=== PATIENT | male | born 1955 | race Caucasian/White ===

== ENCOUNTER 2021-09-07 08:06 | Emergency (ER) | payer MEDICARE, BC ==
[2021-09-07 08:19] VITALS: BP 145/80; PULSE 78
[2021-09-07] MEDS ORDERED: Aspirin 81 MG Tab.Chew PO ONE (08:20)
[2021-09-07] MEDS ORDERED: Sodium Chloride 0.9% 10 ML Syringe FLUSH PRN (08:20)
--- NOTE | 2021-09-07 08:51 | EDM.PDOC ---
ED HPI GENERAL MEDICAL PROBLEM - General Chief Complaint: Cardiovascular Problem Stated Complaint: RAPID HEART BEAT STIFF NECK Time Seen by Provider: 09/07/21 08:29 Source of Information: Reports: Patient History Limitations: Reports: No Limitations - History of Present Illness INITIAL COMMENTS - FREE TEXT/NARRATIVE: Patient is a 66-year-old male who is complaining of having palpitations which he noticed when he got up to go the bathroom around midnight last night. Patient states his blood pressure machine gave him readings approximately 140 bpm and his blood pressure was also elevated for his normal. Patient had no chest pain or pressure no shortness of breath diaphoresis. He denies any fever chills or Covid symptoms. He denies any bloody or tarry stools. He denies any swelling to his calves or ankles. Patient denies having similar symptoms in the past. He is not a cigarette smoker. He has been vaccinated for Covid. Patient does have a positive family history of coronary artery disease and is being treated for both hypertension hypercholesterolemia. Patient symptoms lasted approximately 1 hour and he has not had any symptoms since. Patient did work o ut on his treadmill machine this morning which he does twice a day and had no symptoms on the treadmill. Onset: Today Duration: Hour(s): (0ne) Severity: Mild Improves with: Reports: None Worsens with: Reports: None Associated Symptoms: Denies: Chest Pain, Nausea/Vomiting, Shortness of Breath, Weakness - Related Data Allergies Allergy/AdvReac Type Severity Reaction Status Date / Time No Known Allergies Allergy Verified 09/07/21 08:19 Home Meds: Home Meds Telmisartan [Micardis] 20 mg PO DAILY 04/28/14 [History] Meloxicam 15 mg PO 09/07/21 [History] atorvaSTATin [Lipitor] 09/07/21 [History] Past Medical History Cardiovascular History: Reports: High Cholesterol, Hypertension Musculoskeletal History: Reports: Arthritis - Infectious Disease History Infectious Disease History: Reports: Novel Coronavirus - Past Surgical History GI Surgical History: Reports: Appendectomy, Cholecystectomy Social & Family History - Tobacco Use Tobacco Use Status *Q: Never Tobacco User ED ROS GENERAL - Review of Systems Review Of Systems: Comprehensive ROS is negative, except as noted in HPI. Constitutional: Reports: No Symptoms Respiratory: Reports: No Symptoms. Denies: Shortness of Breath Cardiovascular: Reports: Palpitations. Denies: Chest Pain Endocrine: Denies: Fatigue GI/Abdominal: Reports: No Symptoms Musculoskeletal: Reports: No Symptoms Skin: Reports: No Symptoms Neurological: Reports: No Symptoms Psychiatric: Reports: No Symptoms ED EXAM, GENERAL - Physical Exam Exam: See Below Exam Limited By: No Limitations General Appearance: Alert, No Apparent Distress Neck: Normal Inspection, Supple Respiratory/Chest: No Respiratory Distress, Lungs Clear, Normal Breath Sounds Cardiovascular: Regular Rate, Rhythm, No Edema GI/Abdominal: Normal Bowel Sounds Extremities: Normal Inspection Neurological: Alert, Oriented Psychiatric: Normal Affect Skin Exam: Warm, Dry #1 Interpretation EKG Date: 09/07/21 Rhythm: NSR [place]: LAD-Left [place] Deviation P-Wave: Present QRS: Normal ST-T: Normal Comparison: NA - No Prior EKG Course - Vital Signs Text/Narrative:: Patient is having a 48-hour Holter monitor placed. Patient's lab work including troponin are unremarkable. Patient will be discharged at this point with instructions not to use alcohol or caffeine or any other stimulants. He is to return to emergency department if symptoms are worse and to follow-up with a PCP vice president of business development in a week's time for recheck. Last Recorded V/S: Last Vital Signs Temp 97.5 F 09/07/21 08:17 Pulse 78 09/07/21 08:17 Resp 18 09/07/21 08:17 BP 145/80 H 09/07/21 08:17 Pulse Ox 100 09/07/21 08:17 - Orders/Labs/Meds Orders: Active Orders 24 hr Category Date Time Status Cardiac Monitoring [RC] . DIRECTED Care 09/07/21 08:21 Active Communication Order [RC] ASDIRECTED Care 09/07/21 08:21 Active Holter Monitor 48 Hours [RC] .PRN Care 09/07/21 08:45 Active Peripheral IV Care [RC] . DIRECTED Care 09/07/21 08:21 Active Sodium Chloride 0.9% [Saline Flush] Med 09/07/21 08:20 Active 10 ml FLUSH ASDIRECTED PRN Peripheral IV Insertion Adult [OM.PC] Stat Oth 09/07/21 08:21 Ordered Medication Orders Sodium Chloride (Sodium Chloride 0.9% 10 Ml Syringe) 10 ml FLUSH ASDIRECTED PRN PRN Reason: Keep Vein Open Last Admin: 09/07/21 09:06 Dose: 10 ml Documented by: BROOKE Labs: Laboratory Tests 09/07/21 09/07/21 09/07/21 Range/Units 08:28 08:28 08:28 WBC 6.18 (4.23-9.07) K/mm3 RBC 4.97 (4.63-6.08) M/mm3 Hgb 16.1 (13.7-17.5) gm/dl Hct 46.7 (40.1-51.0) % MCV 94.0 H D (79.0-92.2) fl MCH 32.4 H (25.7-32.2) pg MCHC 34.5 (32.2-35.5) g/dl RDW Std Deviation 42.2 (35.1-43.9) fL Plt Count 157 L (163-337) K/mm3 MPV 10.1 (9.4-12.3) fl Neut % (Auto) 70.6 H (34.0-67.9) % Lymph % (Auto) 21.2 L (21.8-53.1) % [place] % (Auto) 7.1 (5.3-12.2) % Eos % (Auto) 0.6 L (0.8-7.0) Baso % (Auto) 0.2 (0.1-1.2) % Neut # (Auto) 4.36 (1.78-5.38) K/mm3 Lymph # (Auto) 1.31 L (1.32-3.57) K/mm3 [place] # (Auto) 0.44 (0.30-0.82) K/mm3 Eos # (Auto) 0.04 (0.04-0.54) K/mm3 Baso # (Auto) 0.01 (0.01-0.08) K/mm3 PT 12.0 (9.7-12.0) SECONDS INR 1.08 D-Dimer, Quantitative < 0.19 L (0.19-0.50) mg/L Sodium 140 (136-145) mEq/L Potassium 3.9 (3.5-5.1) mEq/L Chloride 104 (98-107) mEq/L Carbon Dioxide 27 (21-32) mEq/L Anion Gap 12.9 (5-15) BUN 30 H (7-18) mg/dL Creatinine 1.1 (0.7-1.3) mg/dL Est Cr Clr Drug Dosing 72.51 mL/min Estimated GFR (MDRD) > 60 (>60) mL/min BUN/Creatinine Ratio 27.3 H (14-18) Glucose 193 H (70-99) mg/dL Calcium 8.9 (8.5-10.1) mg/dL Magnesium 1.8 (1.8-2.4) mg/dL Total Bilirubin 0.8 (0.2-1.0) mg/dL AST 23 (15-37) U/L ALT 50 (16-63) U/L Alkaline Phosphatase 44 L (46-116) U/L Troponin I < 0.017 (0.00-0.056) ng/mL NT-Pro-B Natriuret Pep (0-125) pg/mL Total Protein 6.9 (6.4-8.2) g/dl Albumin 3.8 (3.4-5.0) g/dl Globulin 3.1 gm/dL Albumin/Globulin Ratio 1.2 (1-2) 09/07/21 Range/Units 08:28 WBC (4.23-9.07) K/mm3 RBC (4.63-6.08) M/mm3 Hgb (13.7-17.5) gm/dl Hct (40.1-51.0) % MCV (79.0-92.2) fl MCH (25.7-32.2) pg MCHC (32.2-35.5) g/dl RDW Std Deviation (35.1-43.9) fL Plt Count (163-337) K/mm3 MPV (9.4-12.3) fl Neut % (Auto) (34.0-67.9) % Lymph % (Auto) (21.8-53.1) % [place] % (Auto) (5.3-12.2) % Eos % (Auto) (0.8-7.0) Baso % (Auto) (0.1-1.2) % Neut # (Auto) (1.78-5.38) K/mm3 Lymph # (Auto) (1.32-3.57) K/mm3 [place] # (Auto) (0.30-0.82) K/mm3 Eos # (Auto) (0.04-0.54) K/mm3 Baso # (Auto) (0.01-0.08) K/mm3 PT (9.7-12.0) SECONDS INR D-Dimer, Quantitative (0.19-0.50) mg/L Sodium (136-145) mEq/L Potassium (3.5-5.1) mEq/L Chloride (98-107) mEq/L Carbon Dioxide (21-32) mEq/L Anion Gap (5-15) BUN (7-18) mg/dL Creatinine (0.7-1.3) mg/dL Est Cr Clr Drug Dosing mL/min Estimated GFR (MDRD) (>60) mL/min BUN/Creatinine Ratio (14-18) Glucose (70-99) mg/dL Calcium (8.5-10.1) mg/dL Magnesium (1.8-2.4) mg/dL Total Bilirubin (0.2-1.0) mg/dL AST (15-37) U/L ALT (16-63) U/L Alkaline Phosphatase (46-116) U/L Troponin I (0.00-0.056) ng/mL NT-Pro-B Natriuret Pep 240 H (0-125) pg/mL Total Protein (6.4-8.2) g/dl Albumin (3.4-5.0) g/dl Globulin gm/dL Albumin/Globulin Ratio (1-2) Meds: Medications Generic Name Dose Route Start Last Admin Trade Name Freq PRN Reason Stop Dose Admin Sodium Chloride 10 ml 09/07/21 08:20 09/07/21 09:06 Sodium Chloride 0.9% 10 Ml Syringe FLUSH 10 ml ASDIRECTED PRN Administration Keep Vein Open Discontinued Medications Generic Name Dose Route Start Last Admin Trade Name Freq PRN Reason Stop Dose Admin Aspirin 324 mg 09/07/21 08:20 09/07/21 09:06 Aspirin 81 Mg Tab.Chew PO 09/07/21 08:21 Not Given ONETIME ONE Departure - Departure Time of Disposition: 09:53 Disposition: Home, Self-Care 01 Condition: Good Clinical Impression: Palpitations Referrals: Mushtaq Cueva MD [Primary Care Provider] - Forms: ED Department Discharge Additional Instructions: No caffeinated beverages or alcohol until cleared by vice president of business development. Return to emergency department if symptoms are worse. Recheck with PCP or vice president of business development in 1 week's time for Holter monitor results and possible further work-up or treatment. Sepsis Event Note (ED) - Evaluation Sepsis Screening Result: No Definite Risk - Focused Exam Vital Signs: Vital Signs Temp Pulse Resp BP Pulse Ox 09/07/21 08:17 97.5 F 78 18 145/80 H 100 - My Orders Last 24 Hours: My Active Orders 09/07/21 08:20 Sodium Chloride 0.9% [Saline Flush] 10 ml FLUSH ASDIRECTED PRN 09/07/21 08:21 Cardiac Monitoring [RC] . DIRECTED Communication Order [RC] ASDIRECTED Peripheral IV Care [RC] . DIRECTED Peripheral IV Insertion Adult [OM.PC] Stat 09/07/21 08:45 Holter Monitor 48 Hours [RC] .PRN - Assessment/Plan Last 24 Hours: My Active Orders 09/07/21 08:20 Sodium Chloride 0.9% [Saline Flush] 10 ml FLUSH ASDIRECTED PRN 09/07/21 08:21 Cardiac Monitoring [RC] . DIRECTED Communication Order [RC] ASDIRECTED Peripheral IV Care [RC] . DIRECTED Peripheral IV Insertion Adult [OM.PC] Stat 09/07/21 08:45 Holter Monitor 48 Hours [RC] .PRN
--- NOTE | 2021-09-07 09:28 | CR ---
Chest: Portable view of the chest was obtained. Comparison: Prior chest x-ray of 04/28/14. Heart size and mediastinum are normal. Lungs are clear with no acute parenchymal change. Bony structures show nothing acute for the patient's age. Impression: 1. Nothing acute is seen on portable chest x-ray. Diagnostic code #1
== END 2021-09-07 15:03 | disposition home or self-care (01) ==
LOC: JD.ED 08:06
DX: R00.2 Palpitations (principal); E78.00 Pure hypercholesterolemia, unspecified; I10 Essential (primary) hypertension; Z79.899 Other long term (current) drug therapy; Z86.16 Personal history of COVID-19
CPT/HCPCS: 36415; 71045; 71045-26; 80053; 83735; 83880; 84484; 85025; 85379; 85610; 93005; 93225; 93226; 99285-25

== ENCOUNTER 2022-05-30 15:12 | Emergency (ER) | payer MEDICARE, BC ==
[2022-05-30] MEDS ORDERED: Ketorolac 60 MG/2 ML SDV IM ONE (16:26)
[2022-05-30 16:56] VITALS: BP 176/104; PULSE 67
[2022-05-30] MEDS ORDERED: HYDROmorphone 1 MG/ML Syringe IM ONE (17:43)
[2022-05-30] MEDS ORDERED: Cyclobenzaprine 10 MG Tab PO ONE (17:45)
== END 2022-05-30 19:37 | disposition home or self-care (01) ==
LOC: JD.ED 15:12
DX: S93.401A Sprain of unspecified ligament of right ankle, initial encounter (principal); M89.9 Disorder of bone, unspecified; I10 Essential (primary) hypertension; E78.00 Pure hypercholesterolemia, unspecified; X50.9XXA Other and unspecified overexertion or strenuous movements or postures, initial encounter
CPT/HCPCS: 73590; 73610; 96372; 99283; A9270; J1170; J1885

== ENCOUNTER 2022-11-12 23:49 | Emergency (ER) | payer MEDICARE, BC ==
[2022-11-12] MEDS ORDERED: Sodium Chloride 0.9% 10 ML Syringe FLUSH PRN (23:59)
[2022-11-13 00:44] LABS: ESTIMATED GFR 66 mL/min (>60)
[2022-11-13 00:54] VITALS: BP 136/74; PULSE 61
== END 2022-11-13 01:31 | disposition home or self-care (01) ==
LOC: JD.ED 23:49
DX: I10 Essential (primary) hypertension (principal); E78.00 Pure hypercholesterolemia, unspecified; Z79.899 Other long term (current) drug therapy
CPT/HCPCS: 36415; 80053; 83735; 83880; 84484; 85025; 86140; 93005; 99283; J3490; 93010

== ENCOUNTER 2024-07-14 06:45 | Day surgery (SDC) | payer MEDICARE, BC ==
[~2024-07-14 06:45] MED LIST: Bupivacaine 0.5% 10 ML SDV ONE; Sodium Chloride 0.9% 10 ML Syringe FLUSH PRN; Sodium Chloride 0.9% 10 ML Syringe FLUSH SCH
[2024-07-14] MEDS: Lactated Ringers 1,000 ML IV SCH (07:00)
[2024-07-14] MEDS ORDERED: Propofol 200 MG/20 ML SDV ONE ×2 (07:15→09:13)
[2024-07-14] MEDS ORDERED: Midazolam 1 MG/ML 2 ML SDV ONE (07:15)
[2024-07-14] MEDS ORDERED: Ondansetron 4 MG/2 ML SDV ONE (07:18)
[2024-07-14] MEDS: Pregabalin 25 MG Cap PO SCH (07:23)
[2024-07-14] MEDS: Acetaminophen 325 MG Tab PO SCH (07:23)
[2024-07-14] MEDS: oxyCODONE ER 10 MG TAB.ER PO SCH (07:23)
[2024-07-14] MEDS ORDERED: ceFAZolin 2 GM Vial ONE (08:22)
[2024-07-14] MEDS ORDERED: Phenylephrine 1% 10 MG/ML SDV ONE (08:25)
[2024-07-14] MEDS ORDERED: Ropivacaine 0.5% 5 MG/ML 30 ML SDV ONE (08:29)
[2024-07-14] MEDS ORDERED: dexmedeTOMIDine HCl 200 MCG/2 ML SDV ONE (08:30)
[2024-07-14] MEDS ORDERED: Dexamethasone 4 MG/ML 5 ML MDV ONE (08:36)
[2024-07-14] MEDS: Morphine 8 MG, EPINEPHrine 0.3 MG, Cefuroxime 750 MG, Ketorolac 30 MG, Sodium Chloride ... PRN (09:29)
[2024-07-14] MEDS ORDERED: HYDROmorphone 0.5 MG/0.5 ML Syringe IVPUSH ONE (09:30)
[2024-07-14] MEDS: Tranexamic Acid 1,000 MG/10 ML Vial ONE (09:35)
[2024-07-14] MEDS: Vancomycin 1 GM SDV ONE (09:35)
[2024-07-14] MEDS: Bupivacaine 0.25% 10 ML SDV ONE (09:53)
[2024-07-14] MEDS: Triamcinolone Acetonide 40 MG/ML 1 ML SDV ONE (09:53)
[2024-07-14] MEDS: HYDROmorphone 0.5 MG/0.5 ML Syringe IVPUSH PRN (10:16)
[2024-07-14] MEDS: fentaNYL 100 MCG/2 ML SDV IVPUSH PRN (10:29)
[2024-07-14] MEDS ORDERED: fentaNYL 100 MCG/2 ML SDV IVPUSH PRN (10:41)
[2024-07-14] MEDS: oxyCODONE 5 MG Tab PO PRN (12:04)
[2024-07-14 15:03] VITALS: BP 129/83; PULSE 83
== END 2024-07-14 14:54 | disposition home or self-care (01) ==
LOC: JD.SDS 06:45
PROVIDERS: ATTEND Orthopaedic Surgery
DX: M17.0 Bilateral primary osteoarthritis of knee (principal); I10 Essential (primary) hypertension; E78.5 Hyperlipidemia, unspecified; Z79.899 Other long term (current) drug therapy; Z87.891 Personal history of nicotine dependence
CPT/HCPCS: 0055T; 20610; 27447; 64447; 73560; 97161; A9270; J0171; J0665; J0690; J0697; J1100; J1171; J1885; J2250; J2270; J2371; J2405; J2704; J2795; J3010; J3301; J7120; C1713; C1776; J2272; J3490